=== PATIENT | male | born 1950 | race Caucasian/White ===

== ENCOUNTER → 2023-12-12 16:00 | Outpatient (REF) | payer MEDICARE, OTHER, SELFPAY ==
[2023-12-12 19:30] LABS: % Basophils 0.4 % (0-2); % Eosinophils 1.3 % (0-6); % Immature Granulocytes 0.9 % (0-0.5); % Monocytes 10.3 % (1.7-9.3); % Neutrophils 65.1 % (42.2-75.2); Absolute Eosinophils 0.1 10^3/uL (0-0.7); Absolute Immature Granulocytes 0.1 10^3/uL (0-0.05); Absolute Lymphocytes 1.2 10^3/uL (1.2-3.4); Absolute Monocytes 0.6 10^3/uL (0.1-0.6); Absolute Neutrophils 3.6 10^3/uL (1.4-6.5); Hematocrit 51.4 % (39.0-52.0); Hemoglobin 16.9 g/dL (13.0-18.0); Mean Corp Hgb Conc. 32.9 g/dL (33.0-37.0); Mean Corpuscular Volume 94.3 fL (80.0-94.0); Mean Platelet Volume 10.4 fL (7.4-10.4); Nucleated Red Blood Cells % 0 % (-); Platelet Count 184 10^3/uL (130-400); Red Blood Cell Count 5.45 10^6/uL (4.70-6.10); Red Cell Dist. Width 13.9 % (11.5-14.5); White Blood Cell Count 5.5 10^3/uL (4.8-10.8)
[2023-12-12 20:09] LABS: ALT (SGPT) 50 U/L (0-50); AST (SGOT) 45 U/L (17-59); Albumin 4.3 g/dl (3.5-5.0); Alkaline Phosphatase 58 U/L (38-126); Blood Urea Nitrogen 20 mg/dl (9-20); Calcium 8.7 mg/dl (8.4-10.2); Carbon Dioxide 26 mmol/L (22-30); Chloride 103 mmol/L (98-107); Glucose 93 mg/dl (70-99); HDL Cholesterol 49 mg/dl; LDL Cholesterol, Calculated 32 mg/dl; Potassium 4.4 mmol/L (3.5-5.1); Sodium 135 mmol/L (135-145); Total Bilirubin 2.1 mg/dl (0.2-1.3); Total Cholesterol 93 mg/dl (50-199); Total Protein 6.7 g/dl (6.3-8.2); Triglyceride 63 mg/dl (10-149); Very Low Density Lipoprotein 12 mg/dl (0-30); eGFR > 60.00
[2023-12-12 23:05] LABS: TSH 1.09 uIU/ml (0.47-4.68)
[2023-12-13 09:36] LABS: Glycohemoglobin (HgbA1c) 5.8 % (4.0-5.6)
== END ==
LOC: CLAB 16:00
PROVIDERS: ATTENDING PHYSICIAN Family Medicine
DX: E78.5 Hyperlipidemia, unspecified (principal); R73.01 Impaired fasting glucose; E55.9 Vitamin D deficiency, unspecified; R79.89 Other specified abnormal findings of blood chemistry; R53.83 Other fatigue; D75.89 Other specified diseases of blood and blood-forming organs
CPT/HCPCS: 36415; 80053; 80061; 82728; 83036; 84443; 85025

== ENCOUNTER → 2024-03-25 12:36 | Outpatient (REF) | payer MEDICARE, OTHER, SELFPAY ==
[2024-03-25 14:22] LABS: PSA, Total - Diagnostic 8.73 ng/ml (0.0-4.0)
== END ==
LOC: REG 12:36
PROVIDERS: ATTENDING PHYSICIAN Specialist; FAMILY PHYSICIAN Family Medicine
DX: C61 Malignant neoplasm of prostate (principal)
CPT/HCPCS: 36415; 84153

== ENCOUNTER → 2024-05-23 19:14 | Outpatient (REF) | payer MEDICARE, OTHER, SELFPAY | LOC: MRI 3T 19:14 | PROVIDERS: ATTENDING PHYSICIAN Specialist | DX: R97.20 Elevated prostate specific antigen [PSA] (principal) | CPT/HCPCS: 72197; A9575 ==

== ENCOUNTER → 2024-09-07 07:26 | Outpatient (REF) | payer MEDICARE, OTHER, SELFPAY ==
[2024-09-07 09:39] LABS: PSA, Total - Diagnostic 5.88 ng/ml (0.0-4.0)
== END ==
LOC: REG 07:26
PROVIDERS: ATTENDING PHYSICIAN Specialist; FAMILY PHYSICIAN Family Medicine
DX: C61 Malignant neoplasm of prostate (principal)
CPT/HCPCS: 36415; 84153

== ENCOUNTER → 2024-10-22 20:01 | Outpatient (REF) | payer MEDICARE, OTHER, SELFPAY | LOC: MRI 3T 20:01 | PROVIDERS: ATTENDING PHYSICIAN Specialist; FAMILY PHYSICIAN Family Medicine | DX: C61 Malignant neoplasm of prostate (principal) | CPT/HCPCS: 72197; A9575 ==

== ENCOUNTER → 2024-12-24 16:03 | Outpatient (REF) | payer MEDICARE, OTHER, SELFPAY | LOC: RCS 16:03 | PROVIDERS: ATTENDING PHYSICIAN Student in an Organized Health Care Education/Training Program; FAMILY PHYSICIAN Family Medicine | DX: I35.0 Nonrheumatic aortic (valve) stenosis (principal) | CPT/HCPCS: 93306 ==

== ENCOUNTER → 2025-03-26 07:25 | Outpatient (REF) | payer MEDICARE, OTHER, SELFPAY ==
[2025-03-26 08:42] LABS: PSA, Total - Diagnostic 9.51 ng/ml (0.0-4.0)
== END ==
LOC: REG 07:25
PROVIDERS: ATTENDING PHYSICIAN Specialist; FAMILY PHYSICIAN Family Medicine
DX: C61 Malignant neoplasm of prostate (principal)
CPT/HCPCS: 36415; 84153

== ENCOUNTER 2025-05-07 14:09 | Outpatient (RCR) | payer MEDICARE, OTHER, SELFPAY | END 2025-05-07 23:59 | disposition home or self-care (01) | LOC: RPT 14:09 | PROVIDERS: ATTENDING PHYSICIAN Orthopaedic Surgery; FAMILY PHYSICIAN Family Medicine | DX: Z47.1 Aftercare following joint replacement surgery (principal); Z96.651 Presence of right artificial knee joint; Z73.6 Limitation of activities due to disability | CPT/HCPCS: 97010; 97110; 97162; 97530 ==

== ENCOUNTER 2025-06-05 13:26 | Outpatient (RCR) | payer MEDICARE, OTHER, SELFPAY | END 2025-06-05 23:59 | disposition home or self-care (01) | LOC: RPT 13:26 | PROVIDERS: ATTENDING PHYSICIAN Orthopaedic Surgery; FAMILY PHYSICIAN Family Medicine | DX: Z47.1 Aftercare following joint replacement surgery (principal); Z96.651 Presence of right artificial knee joint; Z73.6 Limitation of activities due to disability; R26.2 Difficulty in walking, not elsewhere classified; M62.81 Muscle weakness (generalized); R26.89 Other abnormalities of gait and mobility; M25.561 Pain in right knee | CPT/HCPCS: 97010; 97110; 97112; 97530 ==

== ENCOUNTER → 2025-06-11 14:42 | Outpatient (REF) | payer MEDICARE, OTHER, SELFPAY | LOC: RCS 14:42 | PROVIDERS: ATTENDING PHYSICIAN Student in an Organized Health Care Education/Training Program; FAMILY PHYSICIAN Family Medicine | DX: I35.0 Nonrheumatic aortic (valve) stenosis (principal) | CPT/HCPCS: 93306 ==

== ENCOUNTER 2025-07-07 15:59 | Outpatient (RCR) | payer MEDICARE, OTHER, SELFPAY | END 2025-07-07 23:59 | disposition home or self-care (01) | LOC: RPT 15:59 | PROVIDERS: ATTENDING PHYSICIAN Orthopaedic Surgery; FAMILY PHYSICIAN Family Medicine | DX: Z47.1 Aftercare following joint replacement surgery (principal); Z73.6 Limitation of activities due to disability; R26.2 Difficulty in walking, not elsewhere classified; M62.81 Muscle weakness (generalized); R26.89 Other abnormalities of gait and mobility; M25.561 Pain in right knee; Z96.651 Presence of right artificial knee joint | CPT/HCPCS: 97010; 97110; 97530 ==

== ENCOUNTER 2025-08-06 08:03 | Outpatient (RCR) | payer MEDICARE, OTHER, SELFPAY | END 2025-08-06 23:59 | disposition home or self-care (01) | LOC: RPT 08:03 | PROVIDERS: ATTENDING PHYSICIAN Orthopaedic Surgery; FAMILY PHYSICIAN Family Medicine | DX: Z47.1 Aftercare following joint replacement surgery (principal); Z73.6 Limitation of activities due to disability; R26.2 Difficulty in walking, not elsewhere classified; M62.81 Muscle weakness (generalized); R26.89 Other abnormalities of gait and mobility; M25.561 Pain in right knee; Z96.651 Presence of right artificial knee joint | CPT/HCPCS: 97110; 97530 ==

== ENCOUNTER → 2025-08-11 07:53 | Outpatient (REF) | payer MEDICARE, OTHER, SELFPAY ==
[2025-08-11 10:00] LABS: PSA, Total - Diagnostic 9.15 ng/ml (0.0-4.0)
== END ==
LOC: REG 07:53
PROVIDERS: ATTENDING PHYSICIAN Specialist; FAMILY PHYSICIAN Family Medicine
DX: C61 Malignant neoplasm of prostate (principal)
CPT/HCPCS: 36415; 84153

== ENCOUNTER → 2025-08-15 13:15 | Outpatient (REF) | payer MEDICARE, OTHER, SELFPAY ==
[2025-08-15 15:53] LABS: ALT (SGPT) 25 U/L (0-50); AST (SGOT) 27 U/L (17-59); Albumin 4.4 g/dl (3.5-5.0); Alkaline Phosphatase 60 U/L (38-126); Blood Urea Nitrogen 19 mg/dl (9-20); Calcium 9.3 mg/dl (8.4-10.2); Carbon Dioxide 30 mmol/L (22-30); Chloride 103 mmol/L (98-107); Glucose 107 mg/dl (70-99); Potassium 4.2 mmol/L (3.5-5.1); Sodium 140 mmol/L (135-145); Total Protein 6.8 g/dl (6.3-8.2); eGFR > 60.00
[2025-08-15 16:10] LABS: Hematocrit 46.1 % (39.0-52.0); Hemoglobin 15.1 g/dL (13.0-18.0); Mean Corp Hgb Conc. 32.8 g/dL (33.0-37.0); Mean Corpuscular Volume 89.3 fL (80.0-94.0); Nucleated Red Blood Cells % 0 % (-); Platelet Count 233 10^3/uL (130-400); Red Cell Dist. Width 13.5 % (11.5-14.5)
== END ==
LOC: SDSPAT 13:15
PROVIDERS: ATTENDING PHYSICIAN Student in an Organized Health Care Education/Training Program; FAMILY PHYSICIAN Family Medicine; OTHER PHYSICIAN Student in an Organized Health Care Education/Training Program
DX: I35.0 Nonrheumatic aortic (valve) stenosis (principal)
CPT/HCPCS: 36415; 80053; 85025; 93005

== ENCOUNTER → 2025-08-22 14:09 | Outpatient (REF) | payer MEDICARE, OTHER, SELFPAY | LOC: RAD 14:09 | PROVIDERS: ATTENDING PHYSICIAN Student in an Organized Health Care Education/Training Program; FAMILY PHYSICIAN Family Medicine | DX: I35.0 Nonrheumatic aortic (valve) stenosis (principal) | CPT/HCPCS: 74174; 75572; Q9967 ==

== ENCOUNTER 2025-08-29 07:28 | Day surgery (SDC) | payer MEDICARE, OTHER, SELFPAY ==
[2025-08-29] VITALS (14 sets, daily range): BP systolic 124–142; BP diastolic 67–89; BMI 28.7
[2025-08-29] MEDS: LOW STRENGTH ASPIRIN 81 MG PO (08:49)
[2025-08-29] MEDS: NSS 1000 IV (13:12)
--- NOTE | 2025-08-29 13:39 | ITS.CL.PN ---
[employer] - Procedure Note
Procedure
Procedure Note:
CARDIAC CATHETERIZATION REPORT
Date of Procedure: 08/29/2025
Referring: Dr. Yassine Celis MD
Indication: severe aortic valve stenosis
PROCEDURE(S)
1. left heart catheterization
2. coronary angiography
ACCESS: 6F right radial artery (closure: radial band)
CATHETERS
1. 6F AL1
2. 6F JL4
MODERATE SEDATION: 25 minutes of moderate sedation was utilized. An independent medical clerical assistant was present to assist with and help manage the patient's level of consciousness and physiologic status.
HEMODYNAMIC DATA
LV 157/9 (EDP 19) mmHg
AO 122/60 (mean 81) mmHg
CORONARY ANGIOGRAPHY
Dominance: left
LM: large, normal
LAD: large vessel giving rise to two moderate caliber diagonals. There are trivial luminal irregularities only.
LCx: large vessel giving rise to a large OM1, small LPL1, and large LPDA. There are trivial luminal irregularities only.
RCA: small and non-dominant with trivial luminal irregularities only.
RADIATION: dose 278 mGy; DAP 22 Gy*cm2; fluoroscopy time 5.4 min
CONCLUSIONS
1. Trivial luminal irregularities only in a left dominant system.
2. Mildly elevated LV filling pressure and elevated [id number] aortic valve gradient in keeping with known severe aortic stenosis.
RECOMMENDATIONS
1. Proceed with workup for AVR. Given patient's young age and excellent health, lifetime management considerations are of utmost importance, and initial surgical AVR may be preferred.
2. Primary prevention of CAD.
Copy to: Dr. Yassine Celis MD (international bank manager); Dr. Justus Jackson MD (PCP)
Signed: Red Rogers MD, PhD
== END 2025-08-29 13:45 | disposition home or self-care (01) ==
LOC: CATH 07:28
PROVIDERS: ATTENDING PHYSICIAN Student in an Organized Health Care Education/Training Program; FAMILY PHYSICIAN Family Medicine; OTHER PHYSICIAN Student in an Organized Health Care Education/Training Program
DX: I35.0 Nonrheumatic aortic (valve) stenosis (principal)
CPT/HCPCS: 99152; 99153; 93458; C1769; C1894; Q9967

== ENCOUNTER → 2025-09-10 11:48 | Outpatient (REF) | payer MEDICARE, OTHER, SELFPAY | LOC: CLAB 11:48 | PROVIDERS: ATTENDING PHYSICIAN Specialist | DX: R97.20 Elevated prostate specific antigen [PSA] (principal) | CPT/HCPCS: 88305 ==